=== PATIENT | male | born 1970 | race Hispanic/Latino ===

== ENCOUNTER → 2019-06-09 | Day surgery (SDC) | payer OTHER ==
--- NOTE | 2019-06-06 14:08 | Diagnostic Imaging Report ---
Chest, PA and lateral. History: Preoperative evaluation for CTS. Comparison: None available. Discussion: The cardiomediastinal silhouette and pulmonary vasculature are within normal limits. The lungs are clear without evidence of consolidation or effusion. There are no acute osseous abnormalities. IMPRESSION: No radiographic evidence of acute cardiopulmonary abnormality. Signed by: Darrion Mcqueen MD on 06/06/2019 2:05 PM
[~2019-06-09] MED LIST: ATORVASTATIN CA10 MG PO; CEFAZOLIN SOD 1 GM/NS 50ML 50 ML IV ONE; DEXAMETHASONE SOD PHOS INJ 4 MG/ML VIAL ONE; FENTANYL CITRATE/PF 100MCG/2 ML INJ ONE; INSULIN REGULAR, HUMAN 100 UNIT/1 ML 3ML VIAL ONE; JANUVIA100 MG PO; LEXAPRO10 MG PO; LIDOCAINE HCL 2% LOCAL INJ 5 ML SDV VIAL INJ ONE; METFORMIN HCL500 M1; MIDAZOLAM HCL 2 MG/2 ML VIAL ONE; ONDANSETRON HCL INJ 2MG/ML 2ML 2 MG/ML VIAL ONE; PROPOFOL IV EMULSION 10 MG/ML 20 ML VIAL ONE; SEVOFLURANE INHAL SOLN 250 ML PEN BTL ONE
--- OUTSIDE RECORDS SUMMARY | 2019-06-09 09:54 | XMS REPORT ---
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 Allergies, Adverse Reactions, Alerts This patient has no known allergies or adverse reactions. Medications This patient has no known medications. Results Test Description Test Time Test Comments Text Results Atomic Results Result Comments CHEST 2 VIEWS 2019-06-06 14:04:00 [place] [address] Patient Name: ELENA MAYNARD JR MR #: [id number] : 1970 Age/Sex: 48/M Req #: [id number] Adm Physician: Ordered by: LAUREN DOWLING MD Report #: [id number] Location: OR Room/Bed: Procedure: [id number] DX/CHEST 2 VIEWS Exam Date: 06/06/19 Exam Time: 1350 REPORT STATUS: Signed Chest, PA and lateral. History: Preoperative evaluation f or CTS. Comparison: None available. Discussion: The cardiomediastinal silhouette and pulmonary vasculature are within normal limits. The lungs are clear without evidence of consolidation or effusion. There are no acute osseous abnormalities. IMPRESSION: No radiographic evidence of acute cardiopulmonary abnormality. Signed by: Darrion Flores MD on 06/06/2019 2:05 PM Dictated By: DARRION FLORES MD [id number] Transcribed By: JASPREET on 06/06/19 140 COPY TO: LAUREN DOWLING MD
[2019-06-09 13:30] VITALS: BP 152/92
--- NOTE | 2019-06-09 18:25 | Operative Report ---
DATE OF PROCEDURE: 06/09/2019 SURGEON: Simeon Suh MD RESEARCH ANTHROPOLOGIST: Eliazar Carbajal, certified PA. PREOPERATIVE DIAGNOSIS: Bilateral carpal tunnel syndrome. POSTOPERATIVE DIAGNOSIS: Bilateral carpal tunnel syndrome. PROCEDURE: Bilateral endoscopic carpal tunnel release. INDICATIONS: The patient is a 48-year-old gentleman, who has clinic signs and symptoms consistent with bilateral carpal tunnel syndrome. He has failed conservative management and would like to proceed with definitive intervention. The risks and benefits of an endoscopic versus open carpal tunnel release have been explained. He states he understands and wishes to proceed. PROCEDURE IN DETAIL: The patient was brought to the operating room and placed under general anesthetic. He received prophylactic antibiotics in the holding area. Both upper extremities were prepped and draped in a sterile manner. A preoperative time-out was performed. Initial attention was directed towards the left upper extremity. This was exsanguinated and a proximal tourniquet was briefly inflated to 250 mmHg. An incision was made over the flexion crease of the left wrist. The palmaris longus was retracted to the radial side of the wound. The flexor retinaculum was elevated and incised. An elevator was used to tease the tenosynovium off the undersurface of the transverse carpal ligament. Dilators were placed and the hook of the hamate was palpated. The [employer] endoscope was placed into the carpal tunnel. The undersurface of the transverse carpal ligament was cleanly visualized without evidence of soft tissue interposition. The knife was deployed and the ligament was cut from distal to proximal. A full-thickness cut was noted. The proximal retinaculum was incised under direct visualization. The incision was closed with 2 interrupted nylon stitches. A sterile wrap was applied. The tourniquet was deflated. The same procedure was then performed on the right upper extremity. The patient was then extubated and transported to the recovery room in stable condition. There was no blood loss and all needle and sponge counts were correct. Simeon Suh MD DR/SHEA /[id number]
== END | disposition home or self-care (01) ==
LOC: OR 09:45
PROVIDERS: ATTEND Specialist
DX: G56.03 Carpal tunnel syndrome, bilateral upper limbs (principal); G47.33 Obstructive sleep apnea (adult) (pediatric); M54.9 Dorsalgia, unspecified; F41.9 Anxiety disorder, unspecified; F17.210 Nicotine dependence, cigarettes, uncomplicated; Z01.810 Encounter for preprocedural cardiovascular examination; Z01.818 Encounter for other preprocedural examination; Z79.84 Long term (current) use of oral hypoglycemic drugs; Z68.33 Body mass index [BMI] 33.0-33.9, adult
CPT/HCPCS: 29848; 36415; 71046; 82948; 93005; J0690; J1100; J2001; J2250; J2405; J2704; J3010; J1817